=== PATIENT | female | born 1940 | race Caucasian/White ===

== ENCOUNTER 2019-08-16 18:32 | Emergency (ER) | payer MEDICARE, OTHER, SELFPAY ==
[2019-08-16 18:34] VITALS: BP 156/88; PULSE 74; RESP 16; TEMP 36.4; O2SAT 99; BMI 22.6
--- NOTE | 2019-08-16 18:45 | ED.VIS.GEN ---
History of Present Illness Chief Complaint: Dizziness Detail of Chief Complaint: Dizzy, chills, nausea Informant: Patient Onset: Today Current Severity: - - Resolved Maximum Severity: Mild Narrative: Patient presents after having an episode of dizziness, chills, and nausea lasted 15 minutes today. She states normally she would not think twice about this, but she had a pacemaker placed on August 04 at [facility] in [place]. She suffered a pneumothorax and had a chest tube which was removed 8 days ago. Patient states she just wants to make sure her lung is okay. She does not feel short of breath. Past Medical History - Allergies and Home Meds Allergies/Adverse Reactions: Allergies ciprofloxacin [From Cipro] Allergy (Verified 08/16/19 18:34) Unknown codeine Allergy (Verified 08/16/19 18:34) Other Iodinated Contrast Media [CONTRASTS] Allergy (Verified 08/16/19 18:34) Rash Sulfa (Sulfonamide Antibiotics) Allergy (Verified 08/16/19 18:34) Rash Primary Care Physician: Dariusz Castro MD [Primary Care Provider] - Prior records reviewed: Yes Past Medical History: - - Reviewed Review of Systems General: Reports: Chills. Denies: Fever Eyes: Denies: Visual changes - bilaterally ENT: Denies: Bilateral ear pain Cardiovascular: Denies: Chest pain, Palpitations Respiratory: Denies: Dyspnea, Cough Gastrointestinal: Reports: Nausea. Denies: Abdominal pain, Vomiting Genitourinary: Denies: Dysuria Musculoskeletal: Denies: Back pain, Extremity Pain Skin: Denies: Rash Neurological: Denies: Headache Hematologic: Denies: Easy bruising Allergy: Denies: Uticaria Physical Exam Vital Signs/Narrative: Vital Signs Temp Pulse Resp BP Pulse Ox 08/16/19 18:34 97.6 F L 74 16 156/88 H 99 Inital Vital Signs reviewed: Yes General: Well nourished, Well developed Head: Normocephalic ENT: Moist mucous membranes Neck: Supple Cardiovascular: Regular rate, Regular rhythm Respiratory: No distress, CTA bilaterally, - - Surgical site clean without sign of infection. Abdomen: Soft, Nontender Extremities: Nontender Skin: Normal color Neurological: Alert, Oriented x3 Psychological: Normal affect Diagnostic/Tx/Re-eval Impressions Chest X-Ray 08/16/19 18:50 IMPRESSION: Borderline heart size. Thoracolumbar dextroscoliosis. No acute cardiopulmonary disease process is seen. Electronically Signed: Konrad King MD at 19:06 EDT , Service support , 08/16/19 18:50 Chest PA and Lateral [RAD] Stat Laboratory Results 08/16/19 08/16/19 08/16/19 19:35 19:35 19:40 WBC 5.7 RBC 3.62 L Hgb 10.9 L Hct 34.3 L MCV 94.8 MCH 30.1 MCHC 31.8 L RDW Std Deviation 43.2 RDW Coeff of Joon 12.4 Plt Count 211 MPV 9.8 Immature Gran % (Auto) 0.300 Neut % (Auto) 67.0 Lymph % (Auto) 21.3 [place] % (Auto) 8.6 Eos % (Auto) 2.3 Baso % (Auto) 0.5 Absolute Neuts (auto) 3.8 Absolute Lymphs (auto) 1.22 Nucleated RBC % 0 Sodium 138 Potassium 4.9 Chloride 105 Carbon Dioxide 28.0 Anion Gap 5 BUN 28 H Creatinine 0.94 Estim Creat Clear Calc 43.94 Est GFR (MDRD) Af Amer 74 Est GFR (MDRD) Non-Af 61 BUN/Creatinine Ratio 29.8 H Glucose 85 Calcium 9.0 Urine Color Straw Urine Clarity Clear Urine pH 7.0 Ur Specific [place] 1.005 Urine Protein Negative Urine Glucose (UA) Normal Urine Ketones Negative Urine Occult Blood Negative Urine Nitrite Negative Urine Bilirubin Negative Urine Urobilinogen Normal Ur Leukocyte Esterase Negative Urine RBC 0 SEEN Urine WBC 0 SEEN Ur Squamous Epith Cells 0 SEEN Urine Bacteria 0 SEEN Urine Mucus 0 SEEN - EKG Initial EKG Interpretation: Sinus Rhythm - Sinus at 70 with no acute ischemia. - Medical Decision Making Patient initially just wanted a chest x-ray performed. When this was unremarkable she did agree to further work-up. Blood work is grossly unremarkable. Last hemoglobin that I can review was from August 08 at which time her hemoglobin was 11.7. Chemistries and urine are unremarkable. Patient had very brief episode of symptoms and is been symptom-free while here in the emergency room. She will be discharged home with family at this time. ED Disposition - Plan for ED Patient: Disposition: Home or Assisted Living Diagnosis: Dizzy Instructions: DIZZINESS, Unk Cause Referrals: Dariusz Castro MD [Primary Care Provider] - As Needed
[2019-08-16 18:49] VITALS: RESP 16
--- NOTE | 2019-08-16 18:50 | RAD_ITS ---
STUDY: X-RAY CHEST REASON FOR EXAM: Female, 79 years old. Dizziness, recent pacer placement TECHNIQUE: PA and lateral views of the chest. COMPARISON: None. FINDINGS: There is a left-sided pacemaker. A medical appointment scheduler is seen overlying the anterior mid thorax. The lungs are clear and expanded. There is no demonstrated pleural abnormality. There is borderline cardiomegaly. Normal mediastinum and antoinette. Normal visualized pulmonary arteries. Normal visualized aortic arch and descending thoracic aorta. There is a thoracolumbar dextroscoliosis. Normal visualized ribs, clavicles, and shoulders. There is no demonstrated abnormality of the visualized soft tissue structures of the upper abdomen. RAD/Chest PA and Lateral IMPRESSION: Borderline heart size. Thoracolumbar dextroscoliosis. No acute cardiopulmonary disease process is seen. Electronically Signed: Konrad King MD at 19:06 EDT , Service support ,
--- NOTE | 2019-08-16 19:20 | EKG12_ITS ---
Test Reason : Blood Pressure : / mmHG Vent. Rate : 070 BPM Atrial Rate : 070 BPM P-R Int : 210 ms QRS Dur : 072 ms QT Int : 400 ms P-R-T Axes : 021 -10 -11 degrees QTc Int : 432 ms Sinus rhythm with 1st degree A-V block Otherwise normal ECG Confirmed by KAUSHAL COLLADO, BRUNILDA ([id number]), film editor supervisor DEEPTI COUCH ([id number]) on 08/20/2019 10:39:39 AM Referred By: KARISSA Confirmed By:BRUNILDA EASLEY MD
[2019-08-16] MEDS: 0.9% Normal Saline 1,000 ML 150 ML IV (19:46)
[2019-08-16 19:49] LABS: Bacteria 0 SEEN /hpf (None Seen); Mucous, Urine 0 SEEN /hpf (<or=2+); Red Blood Cells-Urine 0 SEEN /hpf (0-5); Squamous Epithelial Cells - UA 0 SEEN /hpf (5-10); White Blood Cells 0 SEEN /hpf (0-5)
[2019-08-16 19:51] LABS: Absolute Lymphocyte Count 1.22 X10^3/uL (0.83-4.51); Absolute Neutrophil Count 3.8 X10^3/uL (2.0-7.7); Basophil# 0.03 X10^3/uL; Basophil% 0.5 % (0-1); Eosinophil# 0.13 X10^3/uL; Eosinophils% 2.3 % (0-5); Hematocrit 34.3 % (37-47); Hemoglobin 10.9 g/dL (12.0-15.0); Lymphocyte # 1.22 X10^3/ul (4.0); Lymphocyte % 21.3 % (19-41); Mean Corp Hgb Conc 31.8 g/dL (32-36); Mean Corpuscular Hgb 30.1 pg (27.0-32.0); Mean Corpuscular Volume 94.8 fL (81-99); Mean Platelet Vol. 9.8 fl (6.2-12.0); Monocyte# 0.49 X10^3/uL; Monocyte% 8.6 % (0-10); NRBC Flagged by Analyzer 0 % (0-5); Neutrophil # 3.83 X10^3/uL (2.7-7.7); Platelet Count 211 K/mm3 (150-450); RBC Distribution Width CV 12.4 % (11.6-14.6); RBC Distribution Width SD 43.2 fl (35.1-43.9); Red Blood Count 3.62 M/mm3 (4.2-5.4); White Blood Count 5.7 K/mm3 (4.4-11.0)
[2019-08-16 19:58] LABS: Color, Urine Straw (Yellow); Glucose, Dipstick Normal (Normal); Ketone-Dipstick Negative (Negative); Leukocyte Esterase-Dipstick Negative /ul (Negative); Nitrite-Dipstick Negative (Negative); Occult Blood-Urine Negative /ul (Negative); Protein-Dipstick Negative (Negative); Specific Gravity, Urine 1.005 (1.002-1.030); Urine Bilirubin Dipstick Negative (Negative); Urine Clarity Clear (Clear); Urine Urobilinogen Normal (Normal)
[2019-08-16 20:11] LABS: Anion Gap 5 (5-15); BUN 28 mg/dL (7-18); BUN/Creat Ratio 29.8 RATIO (10-20); Chloride 105 mmol/L (98-107); Creatinine, Serum 0.94 mg/dL (0.55-1.02); EST Glomerular Filtration Rate 61 mL/min (>60); Est Glom Filt Rate - Afr Amer 74 mL/min (>60); Estimated Creatinine Clearance 43.94 ml/min; Glucose 85 mg/dL (74-106); Potassium 4.9 mmol/L (3.5-5.1); Sodium Level 138 mmol/L (136-145)
[2019-08-16 20:57] VITALS: BP 149/56; PULSE 68; RESP 16; O2SAT 96
--- NOTE | 2019-08-16 20:57 | ED.RN ---
REVIEWED D/C INSTRUCTIONS, FOLLOW UP CARE, AND S/S THAT WOULD WARRANT A RETURN TO THE ED WITH PT. PT VERBALIZED AN UNDERSTANDING AND DENIES FURTHER QUESTIONS FOR THIS RN. PT SKIN P/W/D, RESP EVEN AND UNLABORED, PT A&O X 3, NO DISTRESS NOTED. PT AMBULATED OUT OF ED, GAIT STEADY.
== END 2019-08-16 20:59 | disposition home or self-care (01) ==
PROVIDERS: Emergency Provider Emergency Medicine; Family Provider Family Medicine; PCP Family Medicine
DX: R42 Dizziness and giddiness (principal); R11.0 Nausea; R68.83 Chills (without fever); M41.85 Other forms of scoliosis, thoracolumbar region; Z87.09 Personal history of other diseases of the respiratory system; Z95.0 Presence of cardiac pacemaker
CPT/HCPCS: 71046; 80048; 81001; 85025; 93005; 96360; 99283; J7030